=== PATIENT | female | born 1985 | race Caucasian/White ===

== ENCOUNTER 2018-12-04 22:13 | Emergency (ER) | payer BC, OTHER ==
[2018-12-04 22:22] VITALS: RESP 18
[2018-12-04] MEDS ORDERED: SULFAMETH-TMP DS STARTER PACK 2 TAB BTL PO STA (23:26)
[2018-12-04] MEDS ORDERED: CEPHALEXIN 500MG STARTER PACK 4 CAP BTL PO STA (23:26)
--- NOTE | 2018-12-04 23:26 | ED ---
General Adult HPI - General Chief complaint: ENT Stated complaint: Eye Swelling Time Seen by Provider: 12/04/18 22:25 Source: patient Mode of arrival: ambulatory Limitations: no limitations - History of Present Illness Initial comments: Deanna is a pleasant 33-year-old female who presents the emergency department today for evaluation of swelling of her left eyelid. Patient reports that 2 days ago she had what she thought was a pimple in her eyebrow, she states that she did squeeze it to try to get pus out and since that time she's noted some redness and swelling. She's not had any further drainage. This morning when she woke up she noted that her eyelid seemed to be swollen and it has been progressively swelling throughout the day. There is no redness additional pain. No vision changes no pain with range of motion of her eye. Patient denies any associated headache, fevers, chills, nausea or vomiting or other complaints. - Related Data Previous Rx's Medication Instructions Recorded Cephalexin [Keflex] 500 mg PO Q6HR 7 Days #28 cap 12/04/18 Sulfamethox-Tmp 800-160Mg [Bactrim 1 tab PO Q12HR 7 Days #14 tab 12/04/18 DS 800-160 mg] Allergies Allergy/AdvReac Type Severity Reaction Status Date / Time No Known Allergies Allergy Verified 12/04/18 22:36 Review of Systems ROS Statement: Those systems with pertinent positive or pertinent negative responses have been documented in the HPI. ROS Other: All systems not noted in ROS Statement are negative. Past Medical History Past Medical History: No Reported History History of Any Multi-Drug Resistant Organisms: None Reported Past Surgical History: Section Past Psychological History: No Psychological Hx Reported Smoking Status: Current every day smoker Past Alcohol Use History: Occasional Past Drug Use History: None Reported General Exam - General Exam Comments Initial Comments: Physical Exam GENERAL: Patient is well-developed and well-nourished. Patient is nontoxic and well- hydrated and is in no distress. HENT: Normocephalic, Atraumatic. EYES: PERRL, EOMI No pain with EOMI Angioedema of left eyelid noted, no erythema PULMONARY: Unlabored respirations CARDIOVASCULAR: RRR ABDOMEN: Soft and nontender with normal bowel sounds. SKIN: Skin is clear with no lesions or rashes and otherwise unremarkable. : Deferred NEUROLOGIC: Patient is alert and oriented x3. Moving all extremities spontaneously MUSCULOSKELETAL: Normal extremities with adequate strength and full range of motion. No lower extremity swelling or edema. No calf tenderness. PSYCHIATRIC: Normal psychiatric evaluation. Limitations: no limitations Course Vital Signs 12/04/18 12/04/18 22:18 23:43 Temperature 98.2 F 97.3 F L Pulse Rate 84 89 Respiratory 18 18 Rate Blood Pressure 99/62 106/58 O2 Sat by Pulse 99 97 Oximetry Medical Decision Making - Medical Decision Making The patient was seen and evaluated, history was obtained from patient History and physical exam consistent with a small cellulitis in the left eyebrow with some angioedema of the eyelid, no apparent infection of the eyelid At this time will treat for cellulitis, close return parameters were discussed with questions pertaining care were answered patient was discharged home in stable condition Disposition Clinical Impression: Preseptal cellulitis of left eye Disposition: HOME SELF-CARE Condition: Stable Instructions (If sedation given, give patient instructions): Periorbital Cellulitis in Adults (ED) Prescriptions: Sulfamethox-Tmp 800-160Mg [Bactrim DS 800-160 mg] 1 tab PO Q12HR 7 Days #14 tab Cephalexin [Keflex] 500 mg PO Q6HR 7 Days #28 cap Is patient prescribed a controlled substance at d/c from ED?: No Referrals: Ryne Arreola DO [Primary Care Provider] - 1-2 days
[2018-12-04 23:44] VITALS: BP 106/58; PULSE 89; TEMP 97.3
== END 2018-12-04 23:43 | disposition home or self-care (01) ==
LOC: EC 22:13
DX: L03.213 Periorbital cellulitis (principal); F17.200 Nicotine dependence, unspecified, uncomplicated
CPT/HCPCS: 99283

== ENCOUNTER 2019-03-11 16:58 | Emergency (ER) | payer BC, OTHER ==
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
[2019-03-11 21:18] VITALS: BP 116/88; PULSE 83; RESP 19; TEMP 99.1
== END 2019-03-11 21:06 | disposition home or self-care (01) ==
LOC: EC 16:58
DX: S09.93XA Unspecified injury of face, initial encounter (principal); R00.0 Tachycardia, unspecified; M25.511 Pain in right shoulder; F17.200 Nicotine dependence, unspecified, uncomplicated; Y04.0XXA Assault by unarmed brawl or fight, initial encounter; Y92.009 Unspecified place in unspecified non-institutional (private) residence as the place of occurrence of the external cause
CPT/HCPCS: 71045; 72125; 99284

== ENCOUNTER → 2019-05-20 | Outpatient (CLI) | payer OTHER ==
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
== END | disposition home or self-care (01) ==
LOC: RADUSWWP 15:23
PROVIDERS: ATTEND Obstetrics & Gynecology
DX: N94.89 Other specified conditions associated with female genital organs and menstrual cycle (principal); N93.8 Other specified abnormal uterine and vaginal bleeding
CPT/HCPCS: 76830; 76856

== ENCOUNTER → 2019-05-20 | Outpatient (CLI) | payer OTHER ==
[2019-05-21 02:11] LABS: Luteinizing Hormone 4.7 mIU/mL; T4, Free (Free Thyroxine) 1.3 ng/dL (0.80-1.80)
[2019-05-21 02:12] LABS: Estradiol 68.3 pg/mL; Follicle Stimulating Hormone 6.1 mIU/mL
== END | disposition home or self-care (01) ==
LOC: LABWHC1 16:23
PROVIDERS: ATTEND Obstetrics & Gynecology
DX: Z13.29 Encounter for screening for other suspected endocrine disorder (principal); N93.8 Other specified abnormal uterine and vaginal bleeding
CPT/HCPCS: 36415; 82670; 83001; 83002; 84146; 84439; 84443; 84481

== ENCOUNTER 2020-03-10 11:09 | Emergency (ER) | payer OTHER ==
[2020-03-10 11:15] VITALS: BP 118/66; PULSE 102; RESP 18; TEMP 98.8
--- NOTE | 2020-03-10 11:46 | XR ---
EXAMINATION TYPE: XR hand complete RT DATE OF EXAM: 03/10/2020 CLINICAL HISTORY: Fall injury with pain worse and second finger. TECHNIQUE: Frontal, lateral and oblique images of the right hand are obtained. COMPARISON: None. FINDINGS: There is no acute fracture/dislocation evident in the right hand. The joint spaces in the right hand appear within normal limits. The overlying soft tissue appears unremarkable. IMPRESSION: There is no acute fracture or dislocation in the right hand.
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
== END 2020-03-10 12:13 | disposition home or self-care (01) ==
LOC: EC 11:09
DX: S62.316A Displaced fracture of base of fifth metacarpal bone, right hand, initial encounter for closed fracture (principal); W00.0XXA Fall on same level due to ice and snow, initial encounter; Y92.89 Other specified places as the place of occurrence of the external cause
CPT/HCPCS: 29125; 99283